=== PATIENT | female | born 1980 | race Caucasian/White ===

== ENCOUNTER 2021-11-20 09:20 | Emergency (ER) | payer OTHER ==
[~2021-11-20] VITALS: Ht 157.5 cm; Wt 86.2 kg
[2021-11-20] MEDS ORDERED: CLONAZEPAM1 MG PO (09:29)
== END 2021-11-20 12:47 | disposition home or self-care (01) ==
LOC: ER 09:20
DX: F41.9 Anxiety disorder, unspecified (principal); R25.1 Tremor, unspecified; Z91.012 Allergy to eggs; Z91.018 Allergy to other foods